=== PATIENT | male | born 1980 | race Two or more races ===

== ENCOUNTER 2021-01-31 20:15 | Inpatient (IN) | payer SELFPAY ==
[~2021-01-31] VITALS: Ht 172.7 cm; Wt 83.6 kg
[2021-01-31] MEDS ORDERED: CONTRAST GIVEN. MC PRN (22:30)
--- NOTE | 2021-01-31 22:46 | PHYS DOC ---
Past Medical History Past Surgical History: No Surgical History General Adult EDM: Chief Complaint: FLANK PAIN HPI: HPI: Patient is a 40 year old male who presents with right lower lobe pain that is sharp and radiates to the back. This started yesterday. He states his only getting worse needs having nausea and vomiting. He states he is been taking Dominican [id number] ampicillin and Tylenol. Review of Systems: Review of Systems: Constitutional: Denies fever or chills. [] Eyes: Denies change in visual acuity. [] HENT: Denies nasal congestion or sore throat. [] Respiratory: Denies cough or shortness of breath. [] Cardiovascular: Denies chest pain or edema. [] GI: + abdominal pain, +nausea, +vomiting, bloody stools or diarrhea. [] : Denies dysuria. [] Musculoskeletal: + Right back pain or denies joint pain. [] Integument: Denies rash. [] Neurologic: Denies headache, focal weakness or sensory changes. [] Endocrine: Denies polyuria or polydipsia. [] Lymphatic: Denies swollen glands. [] Psychiatric: Denies depression or anxiety. [] Heart Score: C/O Chest Pain: No Risk Factors: Risk Factors: DM, Current or recent (<one month) smoker, HTN, HLP, family history of CAD, obesity. Risk Scores: Score 0 - 3: 2.5% MACE over next 6 weeks - Discharge Home Score 4 - 6: 20.3% MACE over next 6 weeks - Admit for Clinical Observation Score 7 - 10: 72.7% MACE over next 6 weeks - Early Invasive Strategies Current Medications: Current Medications Medications (Trade) Dose Ordered Sig/[facility] Start Time Stop Time Status Last Admin Dose Admin Fentanyl Citrate (Fentanyl 2ml Vial) 75 mcg 1X ONCE 01/31/21 23:00 01/31/21 23:01 Info (CONTRAST GIVEN -- Rx MONITORING) 1 each PRN DAILY PRN 01/31/21 22:30 02/02/21 22:29 Iohexol (Omnipaque 300 Mg/ml) 75 ml 1X ONCE 01/31/21 23:00 01/31/21 23:01 Ondansetron HCl (Zofran) 4 mg 1X ONCE 01/31/21 23:00 01/31/21 23:01 Sodium Chloride 1,000 ml @ 1,000 mls/hr Q1H 01/31/21 23:00 01/31/21 23:59 Allergies: Allergies: Allergies Coded Allergies Type Severity Reaction Last Updated Verified No Known Drug Allergies 01/31/21 No Physical Exam: PE: Constitutional: Well developed, well nourished, no acute distress, non-toxic appearance. [] HENT: Normocephalic, atraumatic, bilateral external ears normal, oropharynx moist, no oral exudates, nose normal. [] Eyes: PERRLA, EOMI, conjunctiva normal, no discharge. [] Neck: Normal range of motion, no tenderness, supple, no stridor. [] Cardiovascular:Heart rate regular rhythm, no murmur [] Lungs & Thorax: Bilateral breath sounds clear to auscultation [] Abdomen: Bowel sounds normal, rigid, right lower tenderness, no masses, no pulsatile masses. [] Skin: Warm, dry, no erythema, no rash. [] Back: No tenderness, no CVA tenderness. [] Extremities: No tenderness, no cyanosis, no clubbing, ROM intact, no edema. [] Neurologic: Alert and oriented X 3, normal motor function, normal sensory function, no focal deficits noted. [] Psychologic: Affect normal, judgement normal, mood normal. [] Current Patient Data: Vital Signs: Vital Signs Date Time Temp Pulse Resp B/P (MAP) Pulse Ox O2 Delivery O2 Flow Rate FiO2 01/31/21 21:55 98.0 88 24 155/72 97 Room Air 98.0 EKG: EKG: [] Radiology/Procedures: Radiology/Procedures: [] Impression: [facility] [address] [place], [place] [id number] IMAGING REPORT Signed PATIENT: SHRUTHI CARR: [id number] : 1980 LOCATION: ER AGE: 40 SEX: M EXAM STATUS: REG ER ORD. PHYSICIAN: OSMEL KENT APRN REASON: VOMITING, FEVER PROCEDURE: PORTABLE CHEST 1V AP chest x-ray HISTORY: Vomiting. Fever. FINDINGS: Heart size upper limits of normal may be magnified by the portable technique. Mediastinal silhouette is normal. There is indistinct opacity obscuring right hilum and right heart border. Left lung is clear. No pleural effusions. Bones are unremarkable. IMPRESSION: Right perihilar and middle lobe opacity partially obscuring the hilum and right heart border, perhaps representing sequela of aspiration given history of recent vomiting, or early lobar pneumonia. Follow-up is advised to document this resolves. Electronically signed by: Lazara Wolf MD (01/31/2021 11:51 PM) [facility] DICTATED and SIGNED BY: LAZARA WOLF MD DATE: 01/31/21 [id number] 0 [facility] [address] [place] [address] IMAGING REPORT Signed PATIENT: SHRUTHI CARR: [id number] : 1980 LOCATION: ER AGE: 40 SEX: M EXAM STATUS: REG ER ORD. PHYSICIAN: OSMEL KENT APRN REASON: vomiting, right lower quadrant pain PROCEDURE: CT ABD PELV W/ IV CONTRST ONLY CT abdomen and pelvis with contrast PQRS statement: CT scans at this facility use dose reduction including either automated exposure control, iterative reconstructions, and /or weight based radiation dosing via mA and kV modification when appropriate to reduce radiation dose to as low as reasonably achievable. Contrast: 75 mL Isovue-370 intravenous contrast. HISTORY: Vomiting, right lower quadrant abdominal pain. Abdomen findings: Lung bases and bones are unremarkable. Liver, gallbladder, spleen, pancreas, adrenal glands and kidneys are unremarkable. There is acute appendicitis the appendix is dilated the diameter of 12 mm with wall thickening and extensive surrounding edema and mild free fluid layering within the paracolic gutter surrounding the tip of the appendix. No pneumoperitoneum. No abscess. There is mild fluid distention and stasis of the distal ileum at the right lower quadrant adjacent of the inflamed appendix which is likely due to mild localized ileus. No adenopathy. Pelvis findings: 2 cm fatty umbilical abdominal wall hernia. No pelvic fluid. Bladder, prostate, rectum and bones are unremarkable. IMPRESSION: Acute appendicitis as described above. Electronically signed by: Lazara Wolf MD (02/01/2021 12:04 AM) [facility]ATED and SIGNED BY: LAZARA WOLF MD DATE: 02/01/21 [id number] 0 Course & Med Decision Making: Course & Med Decision Making Pertinent Labs and Imaging studies reviewed. (See chart for details) HPI. Alert and oriented x4. Ambulatory steady gait. Abdominal pain is worsened with walking. Abdomen is rigid and tender especially in the right lower quadrant. Patient has a low-grade fever of 99.8. Speaks in full clear sentences. Patient does have both of his Covid vaccines. It Associate is used for Peruvian. Scheduled Zosyn every 8 hours for the patient. I talked to Dr. Moore who plans on doing surgery in the morning. [] Rachel Disclaimer: Rachel Disclaimer: This electronic medical record was generated, in whole or in part, using a voice recognition dictation system. Departure Departure Impression: Primary Impression: Acute appendicitis Qualified Codes: K35.80 - Unspecified acute appendicitis Disposition: ADMITTED INPATIENT Admitting Physician: ALYSSA Condition: STABLE Referrals: NO PCP (PCP) OSMEL KENT [employer] Jan 31, 2021 22:46
[2021-01-31] MEDS ORDERED: fentaNYL PF VIAL 100 MCG/2 ML VIAL IVP ONE (23:00)
[2021-01-31] MEDS ORDERED: IOHEXOL 300 MG/ML 100ML VIAL. IV ONE (23:00)
[2021-01-31] MEDS ORDERED: IV NORMAL SALINE 1000ML BAG 1,000 ML IV SCH (23:00)
[2021-01-31] MEDS ORDERED: ONDANSETRON PF 4 MG/2 ML VIAL. IVP ONE (23:00)
[2021-01-31 23:16] LABS: BASO % 0 % (0-3); EOS % 0 % (0-3); HEMATOCRIT 48.7 % (39.0-53.0); LYMPH # 1.2 x10^3/uL (1.0-4.8); LYMPH % 5 % (24-48); MEAN CORPUSCULAR HEMOGLOBIN 31 pg (25-35); MEAN CORPUSCULAR HGB CONC 35 g/dL (31-37); MEAN CORPUSCULAR VOLUME 88 fL (79-100); MONO % 4 % (0-9); NEUT # 20.1 x10^3/uL (1.8-7.7); NEUT % 90 % (31-73); PLATELET COUNT 296 x10^3/uL (140-400); RED BLOOD COUNT 5.52 x10^6/uL (4.30-5.70); RED CELL DISTRIBUTION WIDTH 13.4 % (11.5-14.5); WHITE BLOOD COUNT 22.3 x10^3/uL (4.0-11.0)
[2021-01-31 23:18] LABS: BILIRUBIN,URINE NEGATIVE (NEG); CLARITY,URINE CLEAR; COLOR,URINE AMBER; NITRITE,URINE NEGATIVE (NEG); PROTEIN,URINE NEGATIVE (NEG-TRACE); UROBILINOGEN,URINE 0.2 mg/dL (0.2 mg/dL)
[2021-01-31 23:26] LABS: CALCIUM 9.7 mg/dL (8.5-10.1); CREATININE 0.8 mg/dL (0.7-1.3); GFR 107.6; POTASSIUM 3.8 mmol/L (3.5-5.1)
[2021-01-31 23:28] LABS: BACTERIA,URINE 0 /HPF (0-FEW); RBC,URINE RARE /HPF (0-2); WBC,URINE RARE /HPF (0-4)
[2021-01-31] MEDS ORDERED: IV NORMAL SALINE 1000ML BAG 1,000 ML IV ONE (23:30)
[2021-01-31 23:32] LABS: ALBUMIN/GLOBULIN RATIO 1.1 (1.0-1.7); TOTAL BILIRUBIN 0.6 mg/dL (0.2-1.0); TOTAL PROTEIN 7.6 g/dL (6.4-8.2)
[2021-01-31] MEDS ORDERED: PIPERACILLIN/TAZOBACTAM 3.375 GM in IV NORMAL SALINE 50ML 50 ML IV ONE (23:45)
[2021-01-31 23:50] LABS: % BANDS 5 % (0-9); % LYMPHS 7 % (24-48); % MONOS 5 % (0-10); % SEGS 83 % (35-66); PLT ESTIMATE ADEQUATE (ADEQUATE)
--- NOTE | 2021-01-31 23:54 | RAD ---
AP chest x-ray HISTORY: Vomiting. Fever. FINDINGS: Heart size upper limits of normal may be magnified by the portable technique. Mediastinal s ilhouette is normal. There is indistinct opacity obscuring right hilum and right heart border. Left l lilian is clear. No pleural effusions. Bones are unremarkable. IMPRESSION: Right perihilar and middle lobe opacity partially obscuring the hilum and right heart bor joe, perhaps representing sequela of aspiration given history of recent vomiting, or early lobar pneu monia. Follow-up is advised to document this resolves. Electronically signed by: Sam Wolf MD (01/31/2021 11:51 PM) [facility]
[2021-02-01] VITALS (13 sets, daily range): BP systolic 103–134; BP diastolic 56–76
--- NOTE | 2021-02-01 00:07 | RAD ---
CT abdomen and pelvis with contrast PQRS statement: CT scans at this facility use dose reduction including either automated exposure cont rol, iterative reconstructions, and /or weight based radiation dosing via mA and kV modification when appropriate to reduce radiation dose to as low as reasonably achievable. Contrast: 75 mL Isovue-370 intravenous contrast. HISTORY: Vomiting, right lower quadrant abdominal pain. Abdomen findings: Lung bases and bones are unremarkable. Liver, gallbladder, spleen, pancreas, adrena l glands and kidneys are unremarkable. There is acute appendicitis the appendix is dilated the diamet er of 12 mm with wall thickening and extensive surrounding edema and mild free fluid layering within the paracolic gutter surrounding the tip of the appendix. No pneumoperitoneum. No abscess. There is m ild fluid distention and stasis of the distal ileum at the right lower quadrant adjacent of the infla med appendix which is likely due to mild localized ileus. No adenopathy. Pelvis findings: 2 cm fatty umbilical abdominal wall hernia. No pelvic fluid. Bladder, prostate, rect um and bones are unremarkable. IMPRESSION: Acute appendicitis as described above. Electronically signed by: Sam Wolf MD (02/01/2021 12:04 AM) [facility]
[2021-02-01] MEDS: fentaNYL PF VIAL 100 MCG/2 ML VIAL IVP PRN ×5 (00:35→07:40)
[2021-02-01] MEDS: ONDANSETRON PF 4 MG/2 ML VIAL. IVP PRN ×2 (00:35→10:42)
[2021-02-01] MEDS: IV NORMAL SALINE 1000ML BAG 1,000 ML IV SCH ×3 (00:36→17:00)
[2021-02-01] MEDS: PIPERACILLIN/TAZOBACTAM 3.375 GM in IV NORMAL SALINE 50ML 50 ML IV SCH ×4 (06:03→23:33)
[2021-02-01] MEDS ORDERED: HYDROmorphone 2 MG/ML VIAL IVP PRN (07:00)
[2021-02-01] MEDS ORDERED: IV RINGERS,LACTATED 1000ML 1,000 ML IV SCH (07:00)
[2021-02-01] MEDS ORDERED: PROCHLORPERAZINE 10 MG/2 ML VIAL. IVP PRN (07:00)
[2021-02-01] MEDS ORDERED: fentaNYL PF VIAL 100 MCG/2 ML VIAL IVP PRN ×2 (07:00)
--- NOTE | 2021-02-01 07:40 | PDOC1 ---
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 He is with no PMHx who comes to ED complaining of right lower quadrant abdominal pain that began the night of 01/30/2021. Has associated nausea, vomiting x 2, that began last night, radiates around his right flank. No injury. Denies any difficulty with bowels or bladder. He recently returned from [place]. Received 2 Pfizer vaccines, 2nd shot in October. Labs with WBC 22.3, Hb 17, platelets 296, NA 137, K3.8, BUN 12, CR 0.8, glucose 123, LFTs within normal laboratory limits, lactic acid 1, urinalysis bland, rapid and nucleic acid amplification test for SARS-CoV-[address] abdomen pelvis shows acute appendicitis no clear sign of perforation. Admitted for further care Past Medical History Cardiovascular: No pertinent hx Past Surgical History Past Surgical History: No pertinent history Family History Family History: Diabetes, Hypertension Social History Smoke: No ALCOHOL: rare Drugs: None Current Problem List Problem List Problems Medical Problems: (1) Acute appendicitis Status: Acute Current Medications Current Medications Current Medications Sodium Chloride 1,000 ml @ 1,000 mls/hr Q1H IV Last administered on 01/31/21at 22:58; Start 01/31/21 at 23:00; Stop 01/31/21 at 23:59; Status DC Fentanyl Citrate (Fentanyl 2ml Vial) 75 mcg 1X ONCE IVP Last administered on 01/31/21at 22:59; Start 01/31/21 at 23:00; Stop 01/31/21 at 23:01; Status DC Ondansetron HCl (Zofran) 4 mg 1X ONCE IVP Last administered on 01/31/21at 22:58; Start 01/31/21 at 23:00; Stop 01/31/21 at 23:01; Status DC Iohexol (Omnipaque 300 Mg/ml) 75 ml 1X ONCE IV Last administered on 01/31/21at 23:50; Start 01/31/21 at 23:00; Stop 01/31/21 at 23:01; Status DC Info (CONTRAST GIVEN -- Rx MONITORING) 1 each PRN DAILY PRN MC SEE COMMENTS; Start 01/31/21 at 22:30; Stop 02/02/21 at 22:29 Piperacillin Sod/ Tazobactam Sod 3.375 gm/Sodium Chloride 50 ml @ 100 mls/hr 1X ONCE IV Last administered on 02/01/21at 00:02; Start 01/31/21 at 23:45; Stop 02/01/21 at 00:14; Status DC Sodium Chloride 1,000 ml @ 1,000 mls/hr 1X ONCE IV Last administered on 02/01/21at 00:02; Start 01/31/21 at 23:30; Stop 02/01/21 at 00:29; Status DC Piperacillin Sod/ Tazobactam Sod 3.375 gm/Sodium Chloride 50 ml @ 100 mls/hr Q6HRS IV Last administered on 02/01/21at 06:03; Start 02/01/21 at 06:00 Ondansetron HCl (Zofran) 4 mg PRN Q8HRS PRN IVP NAUSEA/VOMITING 1ST CHOICE Last administered on 02/01/21at 00:35; Start 02/01/21 at 00:30; Stop 02/02/21 at 00:29 Fentanyl Citrate (Fentanyl 2ml Vial) 50 mcg PRN Q1HR PRN IVP SEVERE PAIN 7-10 Last administered on 02/01/21at 06:12; Start 02/01/21 at 00:30; Stop 02/02/21 at 00:29 Sodium Chloride 1,000 ml @ 125 mls/hr Q8H IV Last administered on 02/01/21at 04:51; Start 02/01/21 at 01:00; Stop 02/02/21 at 00:59 Fentanyl Citrate (Fentanyl 2ml Vial) 25 mcg PRN Q5MIN PRN IVP MILD PAIN 1-3; Start 02/01/21 at 07:00; Stop 02/01/21 at 20:00 Fentanyl Citrate (Fentanyl 2ml Vial) 50 mcg PRN Q5MIN PRN IVP MODERATE PAIN 4- 6; Start 02/01/21 at 07:00; Stop 02/01/21 at 20:00 Morphine Sulfate (Morphine Sulfate) 1 mg PRN Q10MIN PRN IVP SEVERE PAIN 7-10; Start 02/01/21 at 07:00; Stop 02/01/21 at 20:00 Ringer's Solution 1,000 ml @ 30 mls/hr Q24H IV ; Start 02/01/21 at 07:00; Stop 02/01/21 at 18:59 Hydromorphone HCl (Dilaudid) 0.5 mg PRN Q10MIN PRN IVP SEVERE PAIN 7-10, 2nd CHOICE; Start 02/01/21 at 07:00; Stop 02/01/21 at 20:00 Prochlorperazine Edisylate (Compazine) 5 mg PACU PRN PRN IVP NAUSEA, MRX1; Sta rt 02/01/21 at 07:00; Stop 02/01/21 at 20:00 Allergies Allergies: Coded Allergies: No Known Drug Allergies (Unverified , 01/31/21) ROS General: YES: Chills, Fatigue, Malaise, Appetite; No: Night Sweats, Other PSYCHOLOGICAL ROS: No: Anxiety, Behavioral Disorder, Concentration difficultie, Decreased libido, Depression, Disorientation, Hallucinations, Hostility, Irritablity, Memory difficulties, Mood Swings, Obsessive thoughts, Physical abuse, Sexual abuse, Sleep disturbances, Suicidal ideation, Other Eyes: No Blurry vision, No Decreased vision, No Double vision, No Dry eyes, No Excessive tearing, No Eye Pain, No Itchy Eyes, No Loss of vision, No Photophobia, No Scotomata, No Uses contacts, No Uses glasses, No Other HEENT: No: Heacaches, Visual Changes, Hearing change, Nasal congestion, Nasal discharge, Oral lesions, Sinus pain, Sore Throat, Epistaxis, Sneezing, Snoring, Tinnitus, Vertigo, Vocal changes, Other ALLERGY AND IMMUNOLOGY: No: Hives, Insect Bite Sensitivity, Itchy/Watery Eyes, Nasal Congestion, Post Nasal Drip, Seasonal Allergies, Other Hematological and Lymphatic: No: Bleeding Problems, Blood Clots, Blood Transf usions, Brusing, Night Sweats, Pallor, Swollen Lymph Nodes, Other ENDOCRINE: No: Breast Changes, Galactorrhea, Hair Pattern Changes, Hot Flashes, Malaise/lethargy, Mood Swings, Palpitations, Polydipsia/polyuria, Skin Changes, Temperature Intolerance, Unexpected Weight Changes, Other Breast: No New/Changing Breast Lumps, No Nipple changes, No Nipple discharge, No Other Respiratory: No: Cough, Hemoptysis, Orthopnea, Pleuritic Pain, Shortness of breath, SOB with excertion, Sputum Changes, Stridor, Tachypnea, Wheezing, Other Cardiovascular: No Chest Pain, No Palpitations, No Orthopnea, No Paroxysmal Noc. Dyspnea, No Edema, No Lt Headedness, No Other Gastrointestinal: Yes Nausea, Yes Vomiting, Yes Abdominal Pain; No Diarrhea, No Constipation, No Melena, No Hematochezia, No Other Genitourinary: No Dysuria, No Frequency, No Incontinence, No Hematuria, No Retention, No Discharge, No Urgency, No Pain, No Flank Pain, No Other, No , No , No , No , No , No , No Musculoskeletal: No Gait Disturbance, No Joint Pain, No Joint Stiffness, No Joint Swelling, No Muscle Pain, No Muscular Weakness, No Pain In:, No Swelling In:, No Other Neurological: No Behavorial Changes, No Bowel/Bladder ControlChng, No Confusion, No Dizziness, No Gait Disturbance, No Headaches, No Impaired Coord/balance, No Memory Loss, No Numbness/Tingling, No Seizures, No Speech Problems, No Tremors, No Visual Changes, No Weakness, No Other Skin: No Dry Skin, No Eczema, No Hair Changes, No Lumps, No Mole Changes, No Mottling, No Nail Changes, No Pruritus, No Rash, No Skin Lesion Changes, No Other, No Acne Physical Exam General: Alert, Oriented X3, Cooperative, moderate distress HEENT: Atraumatic, PERRLA, EOMI, Mucous membr. moist/pink Lungs: Clear to auscultation, Normal air movement Heart: S1S2, RRR, no thrills, no rubs, no gallops, no murmurs Abdomen: Normal bowel sounds, Soft, No hepatosplenomegaly, No masses, Other (RLQ tenderness) Extremities: No clubbing, No cyanosis, No edema, Normal pulses, No tenderness/swelling Skin: No rashes, No breakdown, No significant lesion Neuro: Normal gait, Normal speech, Strength at 5/5 X4 ext, Normal tone, Sensation intact, Cranial nerves 3-12 NL, Reflexes 2+ Psych/Mental Status: Mental status NL, Mood NL Vitals Vitals Vital Signs Date Time Temp Pulse Resp B/P (MAP) Pulse Ox O2 Delivery O2 Flow Rate FiO2 02/01/21 06:42 98 Room Air 02/01/21 02:15 100.1 93 18 134/67 (89) 100.1 Labs Labs Laboratory Tests Test 01/31/21 22:50 02/01/21 00:01 White Blood Count 22.3 x10^3/uL (4.0-11.0) Red Blood Count 5.52 x10^6/uL (4.30-5.70) Hemoglobin 17.0 g/dL (13.0-17.5) Hematocrit 48.7 % (39.0-53.0) Mean Corpuscular Volume 88 fL (79-100) Mean Corpuscular Hemoglobin 31 pg (25-35) Mean Corpuscular Hemoglobin Concent 35 g/dL (31-37) Red Cell Distribution Width 13.4 % (11.5-14.5) Platelet Count 296 x10^3/uL (140-400) Neutrophils (%) (Auto) 90 % (31-73) Lymphocytes (%) (Auto) 5 % (24-48) Monocytes (%) (Auto) 4 % (0-9) Eosinophils (%) (Auto) 0 % (0-3) Basophils (%) (Auto) 0 % (0-3) Neutrophils # (Auto) 20.1 x10^3/uL (1.8-7.7) Lymphocytes # (Auto) 1.2 x10^3/uL (1.0-4.8) Monocytes # (Auto) 1.0 x10^3/uL (0.0-1.1) Eosinophils # (Auto) 0.0 x10^3/uL (0.0-0.7) Basophils # (Auto) 0.0 x10^3/uL (0.0-0.2) Segmented Neutrophils % 83 % (35-66) Band Neutrophils % 5 % (0-9) Lymphocytes % 7 % (24-48) Monocytes % 5 % (0-10) Platelet Estimate Adequate (ADEQUATE) Urine Collection Type Unknown Urine Color Angela Urine Clarity Clear Urine pH 6.0 (<5.0-8.0) Urine Specific [place] >=1.030 (1.000-1.030) Urine Protein Negative mg/dL (NEG-TRACE) Urine Glucose (UA) Negative mg/dL (NEG) Urine Ketones (Stick) 40 mg/dL (NEG) Urine Blood Negative (NEG) Urine Nitrite Negative (NEG) Urine Bilirubin Negative (NEG) Urine Urobilinogen Dipstick 0.2 mg/dL (0.2 mg/dL) Urine Leukocyte Esterase Negative (NEG) Urine RBC Rare /HPF (0-2) Urine WBC Rare /HPF (0-4) Urine Squamous Epithelial Cells Few /LPF Urine Bacteria 0 /HPF (0-FEW) Urine Mucus Mod /LPF Sodium Level 137 mmol/L (136-145) Potassium Level 3.8 mmol/L (3.5-5.1) Chloride Level 101 mmol/L (98-107) Carbon Dioxide Level 25 mmol/L (21-32) Anion Gap 11 (6-14) Blood Urea Nitrogen 12 mg/dL (8-26) Creatinine 0.8 mg/dL (0.7-1.3) Estimated GFR (Cockcroft-Gault) 107.6 BUN/Creatinine Ratio 15 (6-20) Glucose Level 123 mg/dL (70-99) Lactic Acid Level 1.0 mmol/L (0.4-2.0) Calcium Level 9.7 mg/dL (8.5-10.1) Total Bilirubin 0.6 mg/dL (0.2-1.0) Aspartate Amino Transf (AST/SGOT) 16 U/L (15-37) Alanine Aminotransferase (ALT/SGPT) 47 U/L (16-63) Alkaline Phosphatase 74 U/L (46-116) Total Protein 7.6 g/dL (6.4-8.2) Albumin 4.0 g/dL (3.4-5.0) Albumin/Globulin Ratio 1.1 (1.0-1.7) Lipase 76 U/L (73-393) SARS-CoV-2 Antigen (Rapid) Negative (NEGATIVE) Laboratory Tests Test 01/31/21 22:50 02/01/21 00:01 White Blood Count 22.3 x10^3/uL (4.0-11.0) Red Blood Count 5.52 x10^6/uL (4.30-5.70) Hemoglobin 17.0 g/dL (13.0-17.5) Hematocrit 48.7 % (39.0-53.0) Mean Corpuscular Volume 88 fL (79-100) Mean Corpuscular Hemoglobin 31 pg (25-35) Mean Corpuscular Hemoglobin Concent 35 g/dL (31-37) Red Cell Distribution Width 13.4 % (11.5-14.5) Platelet Count 296 x10^3/uL (140-400) Neutrophils (%) (Auto) 90 % (31-73) Lymphocytes (%) (Auto) 5 % (24-48) Monocytes (%) (Auto) 4 % (0-9) Eosinophils (%) (Auto) 0 % (0-3) Basophils (%) (Auto) 0 % (0-3) Neutrophils # (Auto) 20.1 x10^3/uL (1.8-7.7) Lymphocytes # (Auto) 1.2 x10^3/uL (1.0-4.8) Monocytes # (Auto) 1.0 x10^3/uL (0.0-1.1) Eosinophils # (Auto) 0.0 x10^3/uL (0.0-0.7) Basophils # (Auto) 0.0 x10^3/uL (0.0-0.2) Segmented Neutrophils % 83 % (35-66) Band Neutrophils % 5 % (0-9) Lymphocytes % 7 % (24-48) Monocytes % 5 % (0-10) Platelet Estimate Adequate (ADEQUATE) Urine Collection Type Unknown Urine Color Angela Urine Clarity Clear Urine pH 6.0 (<5.0-8.0) Urine Specific [place] >=1.030 (1.000-1.030) Urine Protein Negative mg/dL (NEG-TRACE) Urine Glucose (UA) Negative mg/dL (NEG) Urine Ketones (Stick) 40 mg/dL (NEG) Urine Blood Negative (NEG) Urine Nitrite Negative (NEG) Urine Bilirubin Negative (NEG) Urine Urobilinogen Dipstick 0.2 mg/dL (0.2 mg/dL) Urine Leukocyte Esterase Negative (NEG) Urine RBC Rare /HPF (0-2) Urine WBC Rare /HPF (0-4) Urine Squamous Epithelial Cells Few /LPF Urine Bacteria 0 /HPF (0-FEW) Urine Mucus Mod /LPF Sodium Level 137 mmol/L (136-145) Potassium Level 3.8 mmol/L (3.5-5.1) Chloride Level 101 mmol/L (98-107) Carbon Dioxide Level 25 mmol/L (21-32) Anion Gap 11 (6-14) Blood Urea Nitrogen 12 mg/dL (8-26) Creatinine 0.8 mg/dL (0.7-1.3) Estimated GFR (Cockcroft-Gault) 107.6 BUN/Creatinine Ratio 15 (6-20) Glucose Level 123 mg/dL (70-99) Lactic Acid Level 1.0 mmol/L (0.4-2.0) Calcium Level 9.7 mg/dL (8.5-10.1) Total Bilirubin 0.6 mg/dL (0.2-1.0) Aspartate Amino Transf (AST/SGOT) 16 U/L (15-37) Alanine Aminotransferase (ALT/SGPT) 47 U/L (16-63) Alkaline Phosphatase 74 U/L (46-116) Total Protein 7.6 g/dL (6.4-8.2) Albumin 4.0 g/dL (3.4-5.0) Albumin/Globulin Ratio 1.1 (1.0-1.7) Lipase 76 U/L (73-393) SARS-CoV-2 Antigen (Rapid) Negative (NEGATIVE) Images Images Chest radiograph: Heart size upper limits of normal may be magnified by the portable technique. Mediastinal silhouette is normal. There is indistinct opacity obscuring right hilum and right heart border. Left lung is clear. No pleural effusions. Bones are unremarkable. IMPRESSION: Right perihilar and middle lobe opacity partially obscuring the hilum and right heart border, perhaps representing sequela of aspiration given history of recent vomiting, or early lobar pneumonia. Follow-up is advised to d ocument this resolves. CT abdomen/pelvis: Abdomen findings: Lung bases and bones are unremarkable. Liver, gallbladder, spleen, pancreas, adrenal glands and kidneys are unremarkable. There is acute appendicitis the appendix is dilated the diameter of 12 mm with wall thickening and extensive surrounding edema and mild free fluid layering within the paracolic gutter surrounding the tip of the appendix. No pneumoperitoneum. No abscess. There is mild fluid distention and stasis of the distal ileum at the right lower quadrant adjacent of the inflamed appendix which is likely due to mild localized ileus. No adenopathy. Pelvis findings: 2 cm fatty umbilical abdominal wall hernia. No pelvic fluid. Bladder, prostate, rectum and bones are unremarkable. IMPRESSION: Acute appendicitis as described above. VTE Prophylaxis Ordered VTE Prophylaxis Devices: No VTE Pharmacological Prophylaxi: Yes Assessment/Plan Assessment/Plan A/P: Acute appendicitis -no further testing prior to planned surgery. IV Zosyn every 6 hours, general surgery consulted. NPO. IV pain control with morphine. Sepsis - tachy with WBC 22.3. Due to appendicitis, on zosyn, IVF FEN - NPO PPX - ambulatory FULL CODE Dispo - inpatient Justifications for Admission Other Justification ANTONIETTA MUJICA MD Feb 01, 2021 07:40
--- NOTE | 2021-02-01 09:09 | PDOC2 ---
JOSELILY Mejia [employer] 02/01/21 0909: CONSULT Date of Consult Date of Consult DATE: 02/01/21 TIME: 09:05 Reason for Consult Reason for Consult: appendicitis Referring Physician Referring Physician: ER Identification/Chief Complaint Chief Complaint abdominal pain Source Source: Chart review, Patient History of Present Illness Reason for Visit: RLQ pain x 2 days. Nausea, no emesis. Pain is worse with movement. No co nstipation or diarrhea Past Medical History Past Medical History no pertinent hx Past Surgical History Past Surgical History: No pertinent history Family History Family History: Other (no pertinent hx ) Social History <1 pack per day ALCOHOL: occassional Drugs: None Lives: Alone Current Problem List Problem List Problems Medical Problems: (1) Acute appendicitis Status: Acute Current Medications Current Medications Current Medications Sodium Chloride 1,000 ml @ 1,000 mls/hr Q1H IV Last administered on 01/31/21at 22:58; Start 01/31/21 at 23:00; Stop 01/31/21 at 23:59; Status DC Fentanyl Citrate (Fentanyl 2ml Vial) 75 mcg 1X ONCE IVP Last administered on 01/31/21at 22:59; Start 01/31/21 at 23:00; Stop 01/31/21 at 23:01; Status DC Ondansetron HCl (Zofran) 4 mg 1X ONCE IVP Last administered on 01/31/21at 22:58; Start 01/31/21 at 23:00; Stop 01/31/21 at 23:01; Status DC Iohexol (Omnipaque 300 Mg/ml) 75 ml 1X ONCE IV Last administered on 01/31/21at 23:50; Start 01/31/21 at 23:00; Stop 01/31/21 at 23:01; Status DC Info (CONTRAST GIVEN -- Rx MONITORING) 1 each PRN DAILY PRN MC SEE COMMENTS; Start 01/31/21 at 22:30; Stop 02/02/21 at 22:29 Piperacillin Sod/ Tazobactam Sod 3.375 gm/Sodium Chloride 50 ml @ 100 mls/hr 1X ONCE IV Last administered on 02/01/21at 00:02; Start 01/31/21 at 23:45; Stop 02/01/21 at 00:14; Status DC Sodium Chloride 1,000 ml @ 1,000 mls/hr 1X ONCE IV Last administered on 02/01/21at 00:02; Start 01/31/21 at 23:30; Stop 02/01/21 at 00:29; Status DC Piperacillin Sod/ Tazobactam Sod 3.375 gm/Sodium Chloride 50 ml @ 100 mls/hr Q6HRS IV Last administered on 02/01/21at 06:03; Start 02/01/21 at 06:00 Ondansetron HCl (Zofran) 4 mg PRN Q8HRS PRN IVP NAUSEA/VOMITING 1ST CHOICE Last administered on 02/01/21at 00:35; Start 02/01/21 at 00:30; Stop 02/02/21 at 00:29 Fentanyl Citrate (Fentanyl 2ml Vial) 50 mcg PRN Q1HR PRN IVP SEVERE PAIN 7-10 Last administered on 02/01/21at 07:40; Start 02/01/21 at 00:30; Stop 02/02/21 at 00:29 Sodium Chloride 1,000 ml @ 125 mls/hr Q8H IV Last administered on 02/01/21at 04:51; Start 02/01/21 at 01:00; Stop 02/02/21 at 00:59 Fentanyl Citrate (Fentanyl 2ml Vial) 25 mcg PRN Q5MIN PRN IVP MILD PAIN 1-3; Start 02/01/21 at 07:00; Stop 02/01/21 at 20:00 Fentanyl Citrate (Fentanyl 2ml Vial) 50 mcg PRN Q5MIN PRN IVP MODERATE PAIN 4- 6; Start 02/01/21 at 07:00; Stop 02/01/21 at 20:00 Morphine Sulfate (Morphine Sulfate) 1 mg PRN Q10MIN PRN IVP SEVERE PAIN 7-10; Start 02/01/21 at 07:00; Stop 02/01/21 at 20:00 Ringer's Solution 1,000 ml @ 30 mls/hr Q24H IV ; Start 02/01/21 at 07:00; Stop 02/01/21 at 18:59 Hydromorphone HCl (Dilaudid) 0.5 mg PRN Q10MIN PRN IVP SEVERE PAIN 7-10, 2nd CHOICE; Start 02/01/21 at 07:00; Stop 02/01/21 at 20:00 Prochlorperazine Edisylate (Compazine) 5 mg PACU PRN PRN IVP NAUSEA, MRX1; Start 02/01/21 at 07:00; Stop 02/01/21 at 20:00 Allergies Allergies: Coded Allergies: No Known Drug Allergies (Unverified , 01/31/21) ROS General: YES: Fatigue; No: Chills PSYCHOLOGICAL ROS: No: Anxiety, Depression Eyes: No Blurry vision, No Double vision HEENT: No: Heacaches, Sore Throat Hematological and Lymphatic: No: Bleeding Problems, Blood Clots Respiratory: No: Cough, Shortness of breath Cardiovascular: No Chest Pain, No Palpitations Gastrointestinal: Yes Other (see hpi) Genitourinary: No Dysuria, No Retention Musculoskeletal: No Joint Pain, No Muscle Pain Neurological: No Impaired Coord/balance, No Numbness/Tingling Skin: No Pruritus, No Rash Physical Exam General: Alert, Oriented X3, Cooperative HEENT: Atraumatic, PERRLA Lungs: Clear to auscultation, Normal air movement Heart: Regular rate, Normal S1, Normal S2 Abdomen: Soft, Other (moderate RLQ ttp) Extremities: No clubbing, No cyanosis Skin: No rashes, No breakdown Neuro: Normal gait, Normal speech Psych/Mental Status: Mental status NL, Mood NL MUSCULOSKELETAL: No deformity, No swelling Vitals VITALS Vital Signs Date Time Temp Pulse Resp B/P (MAP) Pulse Ox O2 Delivery O2 Flow Rate FiO2 02/01/21 07:40 Room Air 02/01/21 06:42 98 02/01/21 02:15 100.1 93 18 134/67 (89) 100.1 Labs Labs Laboratory Tests Test 01/31/21 22:50 02/01/21 00:01 White Blood Count 22.3 x10^3/uL (4.0-11.0) Red Blood Count 5.52 x10^6/uL (4.30-5.70) Hemoglobin 17.0 g/dL (13.0-17.5) Hematocrit 48.7 % (39.0-53.0) Mean Corpuscular Volume 88 fL (79-100) Mean Corpuscular Hemoglobin 31 pg (25-35) Mean Corpuscular Hemoglobin Concent 35 g/dL (31-37) Red Cell Distribution Width 13.4 % (11.5-14.5) Platelet Count 296 x10^3/uL (140-400) Neutrophils (%) (Auto) 90 % (31-73) Lymphocytes (%) (Auto) 5 % (24-48) Monocytes (%) (Auto) 4 % (0-9) Eosinophils (%) (Auto) 0 % (0-3) Basophils (%) (Auto) 0 % (0-3) Neutrophils # (Auto) 20.1 x10^3/uL (1.8-7.7) Lymphocytes # (Auto) 1.2 x10^3/uL (1.0-4.8) Monocytes # (Auto) 1.0 x10^3/uL (0.0-1.1) Eosinophils # (Auto) 0.0 x10^3/uL (0.0-0.7) Basophils # (Auto) 0.0 x10^3/uL (0.0-0.2) Segmented Neutrophils % 83 % (35-66) Band Neutrophils % 5 % (0-9) Lymphocytes % 7 % (24-48) Monocytes % 5 % (0-10) Platelet Estimate Adequate (ADEQUATE) Urine Collection Type Unknown Urine Color Angela Urine Clarity Clear Urine pH 6.0 (<5.0-8.0) Urine Specific [place] >=1.030 (1.000-1.030) Urine Protein Negative mg/dL (NEG-TRACE) Urine Glucose (UA) Negative mg/dL (NEG) Urine Ketones (Stick) 40 mg/dL (NEG) Urine Blood Negative (NEG) Urine Nitrite Negative (NEG) Urine Bilirubin Negative (NEG) Urine Urobilinogen Dipstick 0.2 mg/dL (0.2 mg/dL) Urine Leukocyte Esterase Negative (NEG) Urine RBC Rare /HPF (0-2) Urine WBC Rare /HPF (0-4) Urine Squamous Epithelial Cells Few /LPF Urine Bacteria 0 /HPF (0-FEW) Urine Mucus Mod /LPF Sodium Level 137 mmol/L (136-145) Potassium Level 3.8 mmol/L (3.5-5.1) Chloride Level 101 mmol/L (98-107) Carbon Dioxide Level 25 mmol/L (21-32) Anion Gap 11 (6-14) Blood Urea Nitrogen 12 mg/dL (8-26) Creatinine 0.8 mg/dL (0.7-1.3) Estimated GFR (Cockcroft-Gault) 107.6 BUN/Creatinine Ratio 15 (6-20) Glucose Level 123 mg/dL (70-99) Lactic Acid Level 1.0 mmol/L (0.4-2.0) Calcium Level 9.7 mg/dL (8.5-10.1) Total Bilirubin 0.6 mg/dL (0.2-1.0) Aspartate Amino Transf (AST/SGOT) 16 U/L (15-37) Alanine Aminotransferase (ALT/SGPT) 47 U/L (16-63) Alkaline Phosphatase 74 U/L (46-116) Total Protein 7.6 g/dL (6.4-8.2) Albumin 4.0 g/dL (3.4-5.0) Albumin/Globulin Ratio 1.1 (1.0-1.7) Lipase 76 U/L (73-393) SARS-CoV-2 Antigen (Rapid) Negative (NEGATIVE) Laboratory Tests Test 01/31/21 22:50 02/01/21 00:01 White Blood Count 22.3 x10^3/uL (4.0-11.0) Red Blood Count 5.52 x10^6/uL (4.30-5.70) Hemoglobin 17.0 g/dL (13.0-17.5) Hematocrit 48.7 % (39.0-53.0) Mean Corpuscular Volume 88 fL (79-100) Mean Corpuscular Hemoglobin 31 pg (25-35) Mean Corpuscular Hemoglobin Concent 35 g/dL (31-37) Red Cell Distribution Width 13.4 % (11.5-14.5) Platelet Count 296 x10^3/uL (140-400) Neutrophils (%) (Auto) 90 % (31-73) Lymphocytes (%) (Auto) 5 % (24-48) Monocytes (%) (Auto) 4 % (0-9) Eosinophils (%) (Auto) 0 % (0-3) Basophils (%) (Auto) 0 % (0-3) Neutrophils # (Auto) 20.1 x10^3/uL (1.8-7.7) Lymphocytes # (Auto) 1.2 x10^3/uL (1.0-4.8) Monocytes # (Auto) 1.0 x10^3/uL (0.0-1.1) Eosinophils # (Auto) 0.0 x10^3/uL (0.0-0.7) Basophils # (Auto) 0.0 x10^3/uL (0.0-0.2) Segmented Neutrophils % 83 % (35-66) Band Neutrophils % 5 % (0-9) Lymphocytes % 7 % (24-48) Monocytes % 5 % (0-10) Platelet Estimate Adequate (ADEQUATE) Urine Collection Type Unknown Urine Color Angela Urine Clarity Clear Urine pH 6.0 (<5.0-8.0) Urine Specific [place] >=1.030 (1.000-1.030) Urine Protein Negative mg/dL (NEG-TRACE) Urine Glucose (UA) Negative mg/dL (NEG) Urine Ketones (Stick) 40 mg/dL (NEG) Urine Blood Negative (NEG) Urine Nitrite Negative (NEG) Urine Bilirubin Negative (NEG) Urine Urobilinogen Dipstick 0.2 mg/dL (0.2 mg/dL) Urine Leukocyte Esterase Negative (NEG) Urine RBC Rare /HPF (0-2) Urine WBC Rare /HPF (0-4) Urine Squamous Epithelial Cells Few /LPF Urine Bacteria 0 /HPF (0-FEW) Urine Mucus Mod /LPF Sodium Level 137 mmol/L (136-145) Potassium Level 3.8 mmol/L (3.5-5.1) Chloride Level 101 mmol/L (98-107) Carbon Dioxide Level 25 mmol/L (21-32) Anion Gap 11 (6-14) Blood Urea Nitrogen 12 mg/dL (8-26) Creatinine 0.8 mg/dL (0.7-1.3) Estimated GFR (Cockcroft-Gault) 107.6 BUN/Creatinine Ratio 15 (6-20) Glucose Level 123 mg/dL (70-99) Lactic Acid Level 1.0 mmol/L (0.4-2.0) Calcium Level 9.7 mg/dL (8.5-10.1) Total Bilirubin 0.6 mg/dL (0.2-1.0) Aspartate Amino Transf (AST/SGOT) 16 U/L (15-37) Alanine Aminotransferase (ALT/SGPT) 47 U/L (16-63) Alkaline Phosphatase 74 U/L (46-116) Total Protein 7.6 g/dL (6.4-8.2) Albumin 4.0 g/dL (3.4-5.0) Albumin/Globulin Ratio 1.1 (1.0-1.7) Lipase 76 U/L (73-393) SARS-CoV-2 Antigen (Rapid) Negative (NEGATIVE) Assessment/Plan Assessment/Plan acute appendicitis plan for lap appy today ADARSH MUNOZ MD 02/01/21 1233: CONSULT Assessment/Plan Assessment/Plan Pt seen and examined. Agree with Ms. Garcia's note D/w pt via certified court/medical interpreter TTP RLQ concern for perforation, given symptoms, prolonged presentation to hospital and elevated WBC TO OR for laparoscopic versus open appendectomy R/R/B/A d/w pt. Risks, including, but not limited to: bleeding, infection, damage to surrounding structures, risk of anesthesia, risk of open. He appears to understand, his questions are answered and he elects to proceed. Thanks for consult! LILY GARCIA APRN Feb 01, 2021 09:09 ADARSH MUNOZ MD Feb 01, 2021 12:33
[2021-02-01] MEDS ORDERED: MORPHINE SULFATE 4 MG/ML INJ. IV PRN (10:15)
[2021-02-01] MEDS ORDERED: fentaNYL PF VIAL 100 MCG/2 ML VIAL ONE ×2 (10:52→11:50)
[2021-02-01] MEDS ORDERED: ROCURONIUM 50 MG/5 ML VIAL. ONE (10:52)
[2021-02-01] MEDS ORDERED: LIDOCAINE 2% PF 5 ML VIAL. ONE (10:55)
[2021-02-01] MEDS ORDERED: PROPOFOL 10 MG/ML (20ML) VIAL. IV ONE (10:55)
[2021-02-01] MEDS ORDERED: BUPIVACAINE-EPI 0.5% 30 ML VIAL KIT. ONE (11:41)
[2021-02-01] MEDS ORDERED: fentaNYL PF VIAL 100 MCG/2 ML VIAL IVP ONE (12:15)
[2021-02-01] MEDS ORDERED: MIDAZOLAM HCL/PF 2 MG/2 ML VIAL. ONE (12:17)
--- NOTE | 2021-02-01 12:22 | NUR ---
SW following. Discussed with RN, pt from home with family, room air, NPO, rapid COVID-19 negative. Pt having surgery today. Med Assist following for self pay status. SW will continue to follow.
[2021-02-01] MEDS ORDERED: DEXAMETHASONE SOD PHOS 4 MG/ML VIAL ONE (12:36)
[2021-02-01] MEDS ORDERED: GLYCOPYRROLATE 1 MG/5 ML VIAL. ONE (12:45)
[2021-02-01] MEDS ORDERED: NEOSTIGMINE 10 MG/10 ML VIAL. ONE (12:46)
[2021-02-01] MEDS ORDERED: KETOROLAC 30 MG/ML VIAL. ONE (13:09)
[2021-02-01] MEDS ORDERED: SEVOFLURANE 31 TO 60 MINUTES. IH ONE (13:11)
[2021-02-01] MEDS ORDERED: PHENYLEPHRINE in 0.9% NACL PF 1 MG/10 ML SYRINGE. IV ONE (13:12)
[2021-02-01] MEDS ORDERED: MORPHINE SULFATE 2 MG/ML INJ. ONE (13:39)
[2021-02-01] MEDS: MORPHINE SULFATE 2 MG/ML INJ. IVP PRN ×2 (13:45→13:56)
[2021-02-01] MEDS ORDERED: 0.9 % SODIUM CHLORIDE 10 ML DISP.SYRIN. IV PRN (14:45)
[2021-02-01] MEDS ORDERED: NALOXONE 0.4 MG/ML VIAL. IV PRN (14:45)
[2021-02-01] MEDS ORDERED: MORPHINE SULFATE 2 MG/ML INJ. IV PRN (14:45)
[2021-02-01] MEDS ORDERED: IV NORMAL SALINE 1000ML BAG 1,000 ML IV SCH (14:45)
--- NOTE | 2021-02-01 14:46 | PDOC4 ---
OPERATIVE NOTE Date: Date: Feb 01, 2021 Pre-Op Diagnosis: Appendicitis Post-Op Diagnosis: same with localized peritonitis Procedure Performed: laparoscopic appendectomy Surgeon: Oscar Munoz Anesthesia Type: GETA plus local Blood Loss: 50 Specimans Obtained: appendix Findings: appendicitis with associated abscess Complications: none Operative Note: After obtaining informed consent, patient was taken to OR, induced under GETA and prepped in the usual fashion. 5 mm port placed LLQ and suprapubic, 12 port placed umbilical, all under laparoscopic guidance. Abdominal cavity was explored and normal except as above. Appendix bluntly dissected out. Defect created in mesoappendix. General load ANITHA taken across base of appendix. Vascu lar load taken across mesoappendix. Appendix placed in bag, delivered and sent to pathology. Copious irrigation. No evidence of bleeding or other pathology. Ports removed without bleeding. Fascia repaired with 0 vicryl. Skin repaired with 4 0 monocryl. Dressing placed. Patient tolerated procedure well and sent to PACU in stable condition. All counts correct. Wound class is 4. ADARSH MUNOZ MD Feb 01, 2021 14:46
[2021-02-01] MEDS: IV RINGERS,LACTATED 1000ML 1,000 ML IV SCH ×2 (15:00→23:37)
[2021-02-01] MEDS: DOCUSATE SODIUM 100 MG CAPSULE. PO SCH (21:35)
[2021-02-02 03:00] VITALS: BP 109/64
[2021-02-02] MEDS: HYDROcodone/APAP 5/325MG 1 TAB TABLET PO PRN ×2 (03:42→10:15)
[2021-02-02] MEDS: PIPERACILLIN/TAZOBACTAM 3.375 GM in IV NORMAL SALINE 50ML 50 ML IV SCH ×4 (06:12→23:19)
[2021-02-02 06:56] LABS: CALCIUM 9.2 mg/dL (8.5-10.1); CREATININE 0.9 mg/dL (0.7-1.3); GFR 93.9; POTASSIUM 4.3 mmol/L (3.5-5.1)
[2021-02-02 06:57] LABS: BASO % 0 % (0-3); EOS % 0 % (0-3); HEMATOCRIT 42.4 % (39.0-53.0); HEMOGLOBIN 14.3 g/dL (13.0-17.5); LYMPH # 1.1 x10^3/uL (1.0-4.8); LYMPH % 8 % (24-48); MEAN CORPUSCULAR HEMOGLOBIN 31 pg (25-35); MEAN CORPUSCULAR HGB CONC 34 g/dL (31-37); MEAN CORPUSCULAR VOLUME 91 fL (79-100); MONO # 0.7 x10^3/uL (0.0-1.1); MONO % 5 % (0-9); NEUT # 12.8 x10^3/uL (1.8-7.7); NEUT % 88 % (31-73); PLATELET COUNT 221 x10^3/uL (140-400); RED BLOOD COUNT 4.68 x10^6/uL (4.30-5.70); RED CELL DISTRIBUTION WIDTH 13.5 % (11.5-14.5); WHITE BLOOD COUNT 14.6 x10^3/uL (4.0-11.0)
[2021-02-02 07:00] VITALS: BP 123/74
--- NOTE | 2021-02-02 07:10 | PDOC ---
[facility] PROGRESS NOTE Date of Service DOS: DATE: 02/02/21 TIME: 07:08 Chief Complaint Chief Complaint A/P: Acute appendicitis -no further testing prior to planned surgery. IV Zosyn every 6 hours, general surgery consulted. IV pain control with morphine. Sepsis - tachy with WBC 22.3. 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 He is with no PMHx who comes to ED complaining of right lower quadrant abdominal pain that began the night of 01/30/2021. Has associated nausea, vomiting x 2, that began last night, radiates around his right flank. No injury. Denies any difficulty with bowels or bladder. He recently returned from [place]. Received 2 Pfizer vaccines, 2nd shot in October. Labs with WBC 22.3, Hb 17, platelets 296, NA 137, K3.8, BUN 12, CR 0.8, glucose 123, LFTs within normal laboratory limits, lactic acid 1, urinalysis bland, rapid and nucleic acid amplification test for SARS-CoV-[address] abdomen pelvis shows acute appendicitis no clear sign of perforation. Admitted for further care. S/p lap appendectomy on 02/01/21 with no complications. Afebrile overnight. WBC 14. Discussed with surgery and may have an early abscess formation no clear sign of perforation. He has some bloating and nausea after eating biscuits and gravy for breakfast. Passing flatus. Feels improved. Will repeat CBC in a.m. likely discharge date 02/03/21 Vitals/I&O Vitals/I&O: Vital Signs Date Time Temp Pulse Resp B/P (MAP) Pulse Ox O2 Delivery O2 Flow Rate FiO2 02/02/21 03:00 98.8 77 18 109/64 (79) 95 Room Air 98.8 02/01/21 14:22 8.0 I & O 02/01/21 02/01/21 02/02/21 15:00 23:00 07:00 Intake Total 2150 ml Output Total 410 ml 950 ml Balance 1740 ml -950 ml Physical Exam General: Alert, Oriented X3, Cooperative, moderate distress Heart: Regular rate, Normal S1, Normal S2 Abdomen: Normal bowel sounds, Soft, No hepatosplenomegaly, No masses, Other Extremities: No clubbing, No cyanosis, No edema, Normal pulses, No tenderness/swelling Skin: No rashes, No breakdown, No significant lesion Labs Labs: Laboratory Tests Test 02/02/21 05:35 Sodium Level 137 mmol/L (136-145) Potassium Level 4.3 mmol/L (3.5-5.1) Chloride Level 103 mmol/L (98-107) Carbon Dioxide Level 30 mmol/L (21-32) Anion Gap 4 (6-14) Blood Urea Nitrogen 9 mg/dL (8-26) Creatinine 0.9 mg/dL (0.7-1.3) Estimated GFR (Cockcroft-Gault) 93.9 Glucose Level 110 mg/dL (70-99) Calcium Level 9.2 mg/dL (8.5-10.1) Assessment and Plan Assessmemt and Plan Problems Medical Problems: (1) Acute appendicitis Status: Acute Comment Review of Relevant I have reviewed the following items brad (where applicable) has been applied. Medications: Current Medications Medications (Trade) Dose Ordered Sig/Hung Route PRN Reason Start Time Stop Time Status Last Admin Dose Admin Morphine Sulfate (Morphine Sulfate) 4 mg PRN Q2HR PRN IV PAIN 02/01/21 10:15 02/01/21 16:26 DC 02/01/21 10:42 Bupivacaine HCl/ Epinephrine Bitart (Sensorcain-Epi 0.5% Kit) 30 ml STK-MED ONCE .ROUTE 02/01/21 11:41 02/01/21 11:41 DC 02/01/21 12:49 Fentanyl Citrate (Fentanyl 2ml Vial) 100 mcg 1X ONCE IVP 02/01/21 12:15 02/01/21 12:16 DC 02/01/21 12:10 Ringer's Solution 1,000 ml @ 100 mls/hr Q10H IV 02/01/21 15:00 02/01/21 23:37 Acetaminophen/ Hydrocodone Bitart (Lortab 5/325) 1 tab PRN Q4HRS PRN PO MILD PAIN 1-3 02/01/21 14:45 02/02/21 03:42 Morphine Sulfate (Morphine Sulfate) 1 mg PRN Q1HR PRN IV PAIN 02/01/21 14:45 02/02/21 03:46 Docusate Sodium (Colace) 100 mg BID PO 02/01/21 21:00 02/01/21 21:35 Justifications for Admission Other Justification ANTONIETTA MUJICA MD Feb 02, 2021 07:10
--- NOTE | 2021-02-02 08:45 | PDOC ---
SURGICAL PROGRESS NOTE DATE: 02/02/21 TIME: 08:43 Subjective spoke with pt via educational interpreter bloating, nausea, some flatus Vital Signs Vital Signs Date Time Temp Pulse Resp B/P (MAP) Pulse Ox O2 Delivery O2 Flow Rate FiO2 02/02/21 03:00 98.8 77 18 109/64 (79) 95 Room Air 98.8 02/01/21 14:22 8.0 I&O Intake and Output 02/02/21 07:00 Intake Total 2150 ml Output Total 1360 ml Balance 790 ml Intake IV Total 2150 ml Output Urine Total 1310 ml Estimated Blood Loss 50 ml # Voids 1 General: Alert, Oriented X3, Cooperative Abdomen: Soft, Other (lap sites intact, ttp to incisions) Labs Laboratory Tests Test 01/31/21 22:50 02/01/21 00:01 02/02/21 05:35 White Blood Count 22.3 x10^3/uL (4.0-11.0) 14.6 x10^3/uL (4.0-11.0) Red Blood Count 5.52 x10^6/uL (4.30-5.70) 4.68 x10^6/uL (4.30-5.70) Hemoglobin 17.0 g/dL (13.0-17.5) 14.3 g/dL (13.0-17.5) Hematocrit 48.7 % (39.0-53.0) 42.4 % (39.0-53.0) Mean Corpuscular Volume 88 fL (79-100) 91 fL (79-100) Mean Corpuscular Hemoglobin 31 pg (25-35) 31 pg (25-35) Mean Corpuscular Hemoglobin Concent 35 g/dL (31-37) 34 g/dL (31-37) Red Cell Distribution Width 13.4 % (11.5-14.5) 13.5 % (11.5-14.5) Platelet Count 296 x10^3/uL (140-400) 221 x10^3/uL (140-400) Neutrophils (%) (Auto) 90 % (31-73) 88 % (31-73) Lymphocytes (%) (Auto) 5 % (24-48) 8 % (24-48) Monocytes (%) (Auto) 4 % (0-9) 5 % (0-9) Eosinophils (%) (Auto) 0 % (0-3) 0 % (0-3) Basophils (%) (Auto) 0 % (0-3) 0 % (0-3) Neutrophils # (Auto) 20.1 x10^3/uL (1.8-7.7) 12.8 x10^3/uL (1.8-7.7) Lymphocytes # (Auto) 1.2 x10^3/uL (1.0-4.8) 1.1 x10^3/uL (1.0-4.8) Monocytes # (Auto) 1.0 x10^3/uL (0.0-1.1) 0.7 x10^3/uL (0.0-1.1) Eosinophils # (Auto) 0.0 x10^3/uL (0.0-0.7) 0.0 x10^3/uL (0.0-0.7) Basophils # (Auto) 0.0 x10^3/uL (0.0-0.2) 0.0 x10^3/uL (0.0-0.2) Segmented Neutrophils % 83 % (35-66) Band Neutrophils % 5 % (0-9) Lymphocytes % 7 % (24-48) Monocytes % 5 % (0-10) Platelet Estimate Adequate (ADEQUATE) Urine Collection Type Unknown Urine Color Angela Urine Clarity Clear Urine pH 6.0 (<5.0-8.0) Urine Specific [place] >=1.030 (1.000-1.030) Urine Protein Negative mg/dL (NEG-TRACE) Urine Glucose (UA) Negative mg/dL (NEG) Urine Ketones (Stick) 40 mg/dL (NEG) Urine Blood Negative (NEG) Urine Nitrite Negative (NEG) Urine Bilirubin Negative (NEG) Urine Urobilinogen Dipstick 0.2 mg/dL (0.2 mg/dL) Urine Leukocyte Esterase Negative (NEG) Urine RBC Rare /HPF (0-2) Urine WBC Rare /HPF (0-4) Urine Squamous Epithelial Cells Few /LPF Urine Bacteria 0 /HPF (0-FEW) Urine Mucus Mod /LPF Sodium Level 137 mmol/L (136-145) 137 mmol/L (136-145) Potassium Level 3.8 mmol/L (3.5-5.1) 4.3 mmol/L (3.5-5.1) Chloride Level 101 mmol/L (98-107) 103 mmol/L (98-107) Carbon Dioxide Level 25 mmol/L (21-32) 30 mmol/L (21-32) Anion Gap 11 (6-14) 4 (6-14) Blood Urea Nitrogen 12 mg/dL (8-26) 9 mg/dL (8-26) Creatinine 0.8 mg/dL (0.7-1.3) 0.9 mg/dL (0.7-1.3) Estimated GFR (Cockcroft-Gault) 107.6 93.9 BUN/Creatinine Ratio 15 (6-20) Glucose Level 123 mg/dL (70-99) 110 mg/dL (70-99) Lactic Acid Level 1.0 mmol/L (0.4-2.0) Calcium Level 9.7 mg/dL (8.5-10.1) 9.2 mg/dL (8.5-10.1) Total Bilirubin 0.6 mg/dL (0.2-1.0) Aspartate Amino Transf (AST/SGOT) 16 U/L (15-37) Alanine Aminotransferase (ALT/SGPT) 47 U/L (16-63) Alkaline Phosphatase 74 U/L (46-116) Total Protein 7.6 g/dL (6.4-8.2) Albumin 4.0 g/dL (3.4-5.0) Albumin/Globulin Ratio 1.1 (1.0-1.7) Lipase 76 U/L (73-393) SARS-CoV-2 RNA (FRANCIS) Negative (Negative) SARS-CoV-2 Antigen (Rapid) Negative (NEGATIVE) Laboratory Tests Test 02/02/21 05:35 White Blood Count 14.6 x10^3/uL (4.0-11.0) Red Blood Count 4.68 x10^6/uL (4.30-5.70) Hemoglobin 14.3 g/dL (13.0-17.5) Hematocrit 42.4 % (39.0-53.0) Mean Corpuscular Volume 91 fL (79-100) Mean Corpuscular Hemoglobin 31 pg (25-35) Mean Corpuscular Hemoglobin Concent 34 g/dL (31-37) Red Cell Distribution Width 13.5 % (11.5-14.5) Platelet Count 221 x10^3/uL (140-400) Neutrophils (%) (Auto) 88 % (31-73) Lymphocytes (%) (Auto) 8 % (24-48) Monocytes (%) (Auto) 5 % (0-9) Eosinophils (%) (Auto) 0 % (0-3) Basophils (%) (Auto) 0 % (0-3) Neutrophils # (Auto) 12.8 x10^3/uL (1.8-7.7) Lymphocytes # (Auto) 1.1 x10^3/uL (1.0-4.8) Monocytes # (Auto) 0.7 x10^3/uL (0.0-1.1) Eosinophils # (Auto) 0.0 x10^3/uL (0.0-0.7) Basophils # (Auto) 0.0 x10^3/uL (0.0-0.2) Sodium Level 137 mmol/L (136-145) Potassium Level 4.3 mmol/L (3.5-5.1) Chloride Level 103 mmol/L (98-107) Carbon Dioxide Level 30 mmol/L (21-32) Anion Gap 4 (6-14) Blood Urea Nitrogen 9 mg/dL (8-26) Creatinine 0.9 mg/dL (0.7-1.3) Estimated GFR (Cockcroft-Gault) 93.9 Glucose Level 110 mg/dL (70-99) Calcium Level 9.2 mg/dL (8.5-10.1) Problem List Problems Medical Problems: (1) Acute appendicitis Status: Acute Assessment/Plan s/p appy, localized peritonitis continue IV abx today, cbc in AM ambulate Justicifation of Admission Dx: Justifications for Admission: Justification of Admission Dx: Yes Comments: acute appendicitis LILY GARCIA [employer] OPERATOR Feb 02, 2021 08:45
[2021-02-02] MEDS: POLYETHYLENE GLYCOL 3350 17 GM PACKET. PO SCH (10:07)
[2021-02-02] MEDS: IV RINGERS,LACTATED 1000ML 1,000 ML IV SCH ×2 (10:08→20:09)
[2021-02-02] MEDS: PSYLLIUM HUSK (SUGAR FREE) 1 PKT PACKET PO SCH (10:08)
[2021-02-02] MEDS: DOCUSATE SODIUM 100 MG CAPSULE. PO SCH ×2 (10:08→20:09)
[2021-02-02 11:00] VITALS: BP 115/78
[2021-02-02 15:00] VITALS: BP 119/75
[2021-02-02 19:00] VITALS: BP 115/71
[2021-02-02] MEDS: LACTOBACILLUS RHAMNOSUS GG 1 CAPSULE. PO SCH (20:09)
[2021-02-02 22:57] VITALS: BP 123/68
[2021-02-03 03:55] VITALS: BP 125/76
[2021-02-03] MEDS: PIPERACILLIN/TAZOBACTAM 3.375 GM in IV NORMAL SALINE 50ML 50 ML IV SCH ×2 (05:12→12:00)
[2021-02-03 07:00] VITALS: BP 129/78
[2021-02-03] MEDS: IV RINGERS,LACTATED 1000ML 1,000 ML IV SCH (07:00)
--- NOTE | 2021-02-03 08:15 | PDOC ---
[facility] [facility] PROGRESS NOTE Date of Service DOS: DATE: 02/03/21 TIME: 08:15 Chief Complaint Chief Complaint A/P: Acute appendicitis - S/p lap appy Sepsis - tachy with WBC 22.3. Due to appendicitis, on zosyn, IVF. 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 He is with no PMHx who comes to ED complaining of right lower quadrant abdominal pain that began the night of 01/30/2021. Has associated nausea, vomiting x 2, that began last night, radiates around his right flank. No injury. Denies any difficulty with bowels or bladder. He recently returned from [place]. Received 2 Pfizer vaccines, 2nd shot in October. Labs with WBC 22.3, Hb 17, platelets 296, NA 137, K3.8, BUN 12, CR 0.8, glucose 123, LFTs within normal laboratory limits, lactic acid 1, urinalysis bland, rapid and nucleic acid amplification test for SARS-CoV-[address] abdomen pelvis shows acute appendicitis no clear sign of perforation. Admitted for further care. S/p lap appendectomy on 02/01/21 with no complications. 02/03: Afebrile overnight. WBC 14. Discussed with surgery and may have an early abscess formation no clear sign of perforation. He has some bloating and nausea after eating biscuits and gravy for breakfast. Passing flatus. Feels improved. Will repeat CBC in a.m. likely discharge date 02/03/21 WBC normalized. Had 5 bowel movements overnight. Completed 3 days of ant ibiotics IV in the home today with general surgery follow-up in 1 to 2 weeks for wound check. Vitals/I&O Vitals/I&O: Vital Signs Date Time Temp Pulse Resp B/P (MAP) Pulse Ox O2 Delivery O2 Flow Rate FiO2 02/03/21 03:55 99.0 77 18 125/76 (92) 95 Room Air 99.0 02/02/21 13:01 8.0 I & O 02/02/21 02/02/21 02/03/21 15:00 23:00 07:00 Intake Total 1050 ml 550 ml Output Total 300 ml 400 ml Balance 1050 ml 250 ml -400 ml Physical Exam General: Alert, Oriented X3, Cooperative Heart: Regular rate, Normal S1, Normal S2 Abdomen: Soft, Other (lap sites intact, ttp to incisions) Extremities: No clubbing, No cyanosis, No edema, Normal pulses, No tenderness/swelling Skin: No rashes, No breakdown, No significant lesion Assessment and Plan Assessmemt and Plan Problems Medical Problems: (1) Acute appendicitis Status: Acute Comment Review of Relevant I have reviewed the following items brad (where applicable) has been applied. Medications: Current Medications Medications (Trade) Dose Ordered Sig/Hung Route PRN Reason Start Time Stop Time Status Last Admin Dose Admin Polyethylene Glycol (miraLAX PACKET) 17 gm DAILY PO 02/02/21 09:00 02/02/21 10:07 Psyllium Hydrophilic Mucilloid (Metamucil Fiber Packet) 1 pkt DAILY PO 02/02/21 09:15 02/02/21 10:08 Lactobacillus Rhamnosus (Culturelle) 1 cap BID PO 02/02/21 21:00 02/02/21 20:09 Justifications for Admission Other Justification ANTONIETTA MUJICA MD Feb 03, 2021 08:15
[2021-02-03 08:28] LABS: BASO % 0 % (0-3); EOS # 0.2 x10^3/uL (0.0-0.7); EOS % 2 % (0-3); HEMOGLOBIN 14.7 g/dL (13.0-17.5); LYMPH # 1.2 x10^3/uL (1.0-4.8); LYMPH % 12 % (24-48); MEAN CORPUSCULAR HEMOGLOBIN 32 pg (25-35); MEAN CORPUSCULAR HGB CONC 35 g/dL (31-37); MEAN CORPUSCULAR VOLUME 90 fL (79-100); MONO # 0.6 x10^3/uL (0.0-1.1); MONO % 6 % (0-9); NEUT # 8.2 x10^3/uL (1.8-7.7); NEUT % 80 % (31-73); PLATELET COUNT 240 x10^3/uL (140-400); RED BLOOD COUNT 4.65 x10^6/uL (4.30-5.70); RED CELL DISTRIBUTION WIDTH 13.4 % (11.5-14.5); WHITE BLOOD COUNT 10.3 x10^3/uL (4.0-11.0)
[2021-02-03] MEDS: LACTOBACILLUS RHAMNOSUS GG 1 CAPSULE. PO SCH (08:49)
[2021-02-03] MEDS: DOCUSATE SODIUM 100 MG CAPSULE. PO SCH (08:52)
[2021-02-03] MEDS: POLYETHYLENE GLYCOL 3350 17 GM PACKET. PO SCH (08:52)
[2021-02-03] MEDS: PSYLLIUM HUSK (SUGAR FREE) 1 PKT PACKET PO SCH (08:52)
[2021-02-03] MEDS ORDERED: HYDR-2761 PO (09:15)
--- NOTE | 2021-02-03 09:21 | PDOC ---
SURGICAL PROGRESS NOTE DATE: 02/03/21 TIME: 09:20 Subjective tolerating diet having stools feeling better Vital Signs Vital Signs Date Time Temp Pulse Resp B/P (MAP) Pulse Ox O2 Delivery O2 Flow Rate FiO2 02/03/21 07:00 98.2 84 18 129/78 (95) 93 Room Air 98.2 02/02/21 13:01 8.0 I&O Intake and Output 02/03/21 07:00 Intake Total 1600 ml Output Total 700 ml Balance 900 ml Intake Oral 500 ml IV Total 1100 ml Output Urine Total 700 ml General: Alert, Oriented X3, Cooperative Abdomen: Soft, Other (ND, lap sites intact ) Labs Laboratory Tests Test 02/02/21 05:35 02/03/21 08:10 White Blood Count 14.6 x10^3/uL (4.0-11.0) 10.3 x10^3/uL (4.0-11.0) Red Blood Count 4.68 x10^6/uL (4.30-5.70) 4.65 x10^6/uL (4.30-5.70) Hemoglobin 14.3 g/dL (13.0-17.5) 14.7 g/dL (13.0-17.5) Hematocrit 42.4 % (39.0-53.0) 42.0 % (39.0-53.0) Mean Corpuscular Volume 91 fL (79-100) 90 fL (79-100) Mean Corpuscular Hemoglobin 31 pg (25-35) 32 pg (25-35) Mean Corpuscular Hemoglobin Concent 34 g/dL (31-37) 35 g/dL (31-37) Red Cell Distribution Width 13.5 % (11.5-14.5) 13.4 % (11.5-14.5) Platelet Count 221 x10^3/uL (140-400) 240 x10^3/uL (140-400) Neutrophils (%) (Auto) 88 % (31-73) 80 % (31-73) Lymphocytes (%) (Auto) 8 % (24-48) 12 % (24-48) Monocytes (%) (Auto) 5 % (0-9) 6 % (0-9) Eosinophils (%) (Auto) 0 % (0-3) 2 % (0-3) Basophils (%) (Auto) 0 % (0-3) 0 % (0-3) Neutrophils # (Auto) 12.8 x10^3/uL (1.8-7.7) 8.2 x10^3/uL (1.8-7.7) Lymphocytes # (Auto) 1.1 x10^3/uL (1.0-4.8) 1.2 x10^3/uL (1.0-4.8) Monocytes # (Auto) 0.7 x10^3/uL (0.0-1.1) 0.6 x10^3/uL (0.0-1.1) Eosinophils # (Auto) 0.0 x10^3/uL (0.0-0.7) 0.2 x10^3/uL (0.0-0.7) Basophils # (Auto) 0.0 x10^3/uL (0.0-0.2) 0.0 x10^3/uL (0.0-0.2) Sodium Level 137 mmol/L (136-145) Potassium Level 4.3 mmol/L (3.5-5.1) Chloride Level 103 mmol/L (98-107) Carbon Dioxide Level 30 mmol/L (21-32) Anion Gap 4 (6-14) Blood Urea Nitrogen 9 mg/dL (8-26) Creatinine 0.9 mg/dL (0.7-1.3) Estimated GFR (Cockcroft-Gault) 93.9 Glucose Level 110 mg/dL (70-99) Calcium Level 9.2 mg/dL (8.5-10.1) Laboratory Tests Test 02/03/21 08:10 White Blood Count 10.3 x10^3/uL (4.0-11.0) Red Blood Count 4.65 x10^6/uL (4.30-5.70) Hemoglobin 14.7 g/dL (13.0-17.5) Hematocrit 42.0 % (39.0-53.0) Mean Corpuscular Volume 90 fL (79-100) Mean Corpuscular Hemoglobin 32 pg (25-35) Mean Corpuscular Hemoglobin Concent 35 g/dL (31-37) Red Cell Distribution Width 13.4 % (11.5-14.5) Platelet Count 240 x10^3/uL (140-400) Neutrophils (%) (Auto) 80 % (31-73) Lymphocytes (%) (Auto) 12 % (24-48) Monocytes (%) (Auto) 6 % (0-9) Eosinophils (%) (Auto) 2 % (0-3) Basophils (%) (Auto) 0 % (0-3) Neutrophils # (Auto) 8.2 x10^3/uL (1.8-7.7) Lymphocytes # (Auto) 1.2 x10^3/uL (1.0-4.8) Monocytes # (Auto) 0.6 x10^3/uL (0.0-1.1) Eosinophils # (Auto) 0.2 x10^3/uL (0.0-0.7) Basophils # (Auto) 0.0 x10^3/uL (0.0-0.2) Problem List Problems Medical Problems: (1) Acute appendicitis Status: Acute Assessment/Plan s/p appy wbc normal ok to [facility] home on oral abx Justicifation of Admission Dx: Justifications for Admission: Justification of Admission Dx: Yes LILY GARCIA LEATHER LACER Feb 03, 2021 09:21
[2021-02-03] MEDS ORDERED: AMOX1TAB61 PO (09:22)
--- NOTE | 2021-02-03 11:01 | NUR ---
SW following. Discussed with RN, discharge order for home with self care.
--- NOTE | 2021-02-03 12:56 | PDOC3 ---
Discharge Summary Visit Information Date of Admission: Feb 01, 2021 Date of Discharge: Feb 03, 2021 Admitting Diagnosis: Acute appendicitis Final Diagnosis Problems Medical Problems: (1) Acute appendicitis Status: Acute Brief Hospital Course Allergies Allergies Coded Allergies Type Severity Reaction Last Updated Verified No Known Drug Allergies 01/31/21 No Vital Signs Vital Signs Date Time Temp Pulse Resp B/P (MAP) Pulse Ox O2 Delivery O2 Flow Rate FiO2 02/03/21 08:00 Room Air 02/03/21 07:00 98.2 84 18 129/78 (95) 93 98.2 02/02/21 13:01 8.0 Lab Results Laboratory Tests Test 02/02/21 05:35 02/03/21 08:10 White Blood Count 14.6 x10^3/uL (4.0-11.0) 10.3 x10^3/uL (4.0-11.0) Red Blood Count 4.68 x10^6/uL (4.30-5.70) 4.65 x10^6/uL (4.30-5.70) Hemoglobin 14.3 g/dL (13.0-17.5) 14.7 g/dL (13.0-17.5) Hematocrit 42.4 % (39.0-53.0) 42.0 % (39.0-53.0) Mean Corpuscular Volume 91 fL (79-100) 90 fL (79-100) Mean Corpuscular Hemoglobin 31 pg (25-35) 32 pg (25-35) Mean Corpuscular Hemoglobin Concent 34 g/dL (31-37) 35 g/dL (31-37) Red Cell Distribution Width 13.5 % (11.5-14.5) 13.4 % (11.5-14.5) Platelet Count 221 x10^3/uL (140-400) 240 x10^3/uL (140-400) Neutrophils (%) (Auto) 88 % (31-73) 80 % (31-73) Lymphocytes (%) (Auto) 8 % (24-48) 12 % (24-48) Monocytes (%) (Auto) 5 % (0-9) 6 % (0-9) Eosinophils (%) (Auto) 0 % (0-3) 2 % (0-3) Basophils (%) (Auto) 0 % (0-3) 0 % (0-3) Neutrophils # (Auto) 12.8 x10^3/uL (1.8-7.7) 8.2 x10^3/uL (1.8-7.7) Lymphocytes # (Auto) 1.1 x10^3/uL (1.0-4.8) 1.2 x10^3/uL (1.0-4.8) Monocytes # (Auto) 0.7 x10^3/uL (0.0-1.1) 0.6 x10^3/uL (0.0-1.1) Eosinophils # (Auto) 0.0 x10^3/uL (0.0-0.7) 0.2 x10^3/uL (0.0-0.7) Basophils # (Auto) 0.0 x10^3/uL (0.0-0.2) 0.0 x10^3/uL (0.0-0.2) Sodium Level 137 mmol/L (136-145) Potassium Level 4.3 mmol/L (3.5-5.1) Chloride Level 103 mmol/L (98-107) Carbon Dioxide Level 30 mmol/L (21-32) Anion Gap 4 (6-14) Blood Urea Nitrogen 9 mg/dL (8-26) Creatinine 0.9 mg/dL (0.7-1.3) Estimated GFR (Cockcroft-Gault) 93.9 Glucose Level 110 mg/dL (70-99) Calcium Level 9.2 mg/dL (8.5-10.1) Laboratory Tests Test 02/03/21 08:10 White Blood Count 10.3 x10^3/uL (4.0-11.0) Red Blood Count 4.65 x10^6/uL (4.30-5.70) Hemoglobin 14.7 g/dL (13.0-17.5) Hematocrit 42.0 % (39.0-53.0) Mean Corpuscular Volume 90 fL (79-100) Mean Corpuscular Hemoglobin 32 pg (25-35) Mean Corpuscular Hemoglobin Concent 35 g/dL (31-37) Red Cell Distribution Width 13.4 % (11.5-14.5) Platelet Count 240 x10^3/uL (140-400) Neutrophils (%) (Auto) 80 % (31-73) Lymphocytes (%) (Auto) 12 % (24-48) Monocytes (%) (Auto) 6 % (0-9) Eosinophils (%) (Auto) 2 % (0-3) Basophils (%) (Auto) 0 % (0-3) Neutrophils # (Auto) 8.2 x10^3/uL (1.8-7.7) Lymphocytes # (Auto) 1.2 x10^3/uL (1.0-4.8) Monocytes # (Auto) 0.6 x10^3/uL (0.0-1.1) Eosinophils # (Auto) 0.2 x10^3/uL (0.0-0.7) Basophils # (Auto) 0.0 x10^3/uL (0.0-0.2) Brief Hospital Course Mr Marin is a 40 yo M who is Amharic-speaking only and [employer]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 He is with no PMHx who comes to ED complaining of right lower quadrant abdominal pain that began the night of 01/30/2021. Has associated nausea, vomiting x 2, that began last night, radiates around his right flank. No injury. Denies any difficulty with bowels or bladder. He recently returned from [place]. Received 2 Pfizer vaccines, 2nd shot in October. Labs with WBC 22.3, Hb 17, platelets 296, NA 137, K3.8, BUN 12, CR 0.8, glucose 123, LFTs within normal laboratory limits, lactic acid 1, urinalysis bland, rapid and nucleic acid amplification test for SARS-CoV-[address] abdomen pelvis shows acute appendicitis no clear sign of perforation. Admitted for further care. S/p lap appendectomy on 02/01/21 with no complications. 02/03: Afebrile overnight. WBC 14. Discussed with surgery and may have an early abscess formation no clear sign of perforation. He has some bloating and nausea after eating biscuits and gravy for breakfast. Passing flatus. Feels improved. Will repeat CBC in a.m. likely discharge date 02/03/21 WBC normalized. Had 5 bowel movements overnight. Completed 3 days of antibiotics IV in the home today with general surgery follow-up in 1 to 2 weeks for wound check. Consults: General surgery. Follow-up with general surgery in 1 to [id number] [place], [place] [id number] Problem list: Acute appendicitis - S/p lap appy Sepsis - tachy with WBC 22.3. Due to appendicitis, on zosyn, IVF. Resolved Greater than 30 minutes spent on discharge Discharge Information Condition at Discharge: Improved Follow Up: Weeks Disposition/Orders: D/C to Home Scheduled Amoxicillin/Potassium Clav (Augmentin 875-125 Tablet) 1 Each Tablet, 1 TAB PO BID for abd infection for 5 Days, #10 Ref 0 Prescribed by: Siomara Pack on 02/03/21 0922 Scheduled PRN Hydrocodone Bit/Acetaminophen (Hydrocodone-Apap 5-325 ) 1 Tab Tablet, 1 TAB PO PRN Q4HRS PRN for appendicitis for 3 Days, #6 Prescribed by: ANTONIETTA MUJICA MD on 02/03/21 0916 Justicifation of Admission Dx: Justifications for Admission: Justification of Admission Dx: Yes ANTONIETTA MUJICA MD Feb 03, 2021 12:56
--- NOTE | 2021-02-06 09:17 | PATHOLOGY ---
[facility] Accession Number: [id number] . 01 Material submitted: . appendix - APPENDIX . 01 Clinical history: . LAP APPENDECTOMY . 02 Diagnosis: Appendix, laparoscopic appendectomy: - Fecalith. - Acute suppurative appendicitis with serosal exudate. (JPM:pit; 02/03/2021) QTP 02/03/2021 1643 Local . 02 Comment: Sections of the appendix reveal an acute suppurative appendicitis with extensive serosal exudate. There is a small defect of the appendix which may represent a focus of perforation. There is no evidence of malignancy. . (JPM:pit; 02/03/2021) . 02 Electronically signed: . Ge Bowser MD, Pathologist NPI- [id number] . 01 Gross description: . Fixative: Formalin Labeled: Donal Holloway, hernandez Appendix size: 5.6 cm in length by 0.7 cm in diameter Mesoappendix: Moderate Proximal margin: Inked black Serosa: Bright-smith, hemorrhagic and dusky with overlying fibrinous exudate Mucosa: Smith and dusky Luminal diameter: Up to 0.5 cm Wall thickness: Averages 0.2 cm with a small defect measuring 0.2 x 0.1 cm Lesions/abnormalities: The lumen displays a soft to semi-firm fecalith (0.9 cm in greatest dimension) . A1-A2: Bsw sections of appendix to incldue the proximal margin (submitted en face) and entirety of distal tip and entirety of defect. ([place]; 02/02/2021) DKA/DKA 02/03/2021 1640 Local . 02 Pathologist provided ICD-10: K35.80 . 02 CPT . 677692 Specimen Comment: A courtesy copy of this report has been sent to [phone] Specimen Comment: [id number] Specimen Comment: Report sent to / DR MUNOZ Performed at: [address] [id number] MD Slim Lee MD Phone: [phone] Performed at: 02 [facility] [address] [place], [place] [id number] MD Ge Bowser MD Phone: [phone]
== END 2021-02-03 11:30 | disposition home or self-care (01) | DRG 854 ==
LOC: ER 20:15 → 4 NORTH 02-01 00:29
PROVIDERS: ADMIT Family Medicine; ATTEND Family Medicine
PROC: 0DTJ4ZZ Resection of Appendix, Percutaneous Endoscopic Approach (ICD-10-PCS; principal; 2021-02-01 12:30)
DX: A41.9 Sepsis, unspecified organism (principal); K35.30 Acute appendicitis with localized peritonitis, without perforation or gangrene; Z20.822 Contact with and (suspected) exposure to COVID-19; Z82.49 Family history of ischemic heart disease and other diseases of the circulatory system; Z83.3 Family history of diabetes mellitus
CPT/HCPCS: 36415; 71045; 74177; 80048; 80053; 81001; 83605; 83690; 85007; 85025; 87426; 96361; 96365; 96375; A4213; A4314; A4930; J1100; J1885; J2250; J2270; J2370; J2405; J2543; J2704; J2710; J3010; J3490; J7030; J7120; Q9967; U0003; U0005; 99285-25; G0378